=== PATIENT | female | born 1975 | race African-American/Black ===

== ENCOUNTER 2019-01-06 03:42 | Emergency (ER) | payer SELFPAY ==
[~2019-01-06] VITALS: Ht 170.2 cm; Wt 101.0 kg
[2019-01-06] MEDS ORDERED: LORAZEPAM 2MG/ML CPJ IM ONE (04:45)
[2019-01-06] MEDS ORDERED: CLONIDINE 0.1MG TABLET PO ONE (05:15)
[2019-01-06 06:25] VITALS: BP 180/108
== END 2019-01-06 06:35 | disposition home or self-care (01) ==
LOC: ER 04:40
DX: T74.21XA Adult sexual abuse, confirmed, initial encounter (principal); I16.0 Hypertensive urgency; R45.1 Restlessness and agitation; F14.10 Cocaine abuse, uncomplicated; F12.10 Cannabis abuse, uncomplicated; F17.200 Nicotine dependence, unspecified, uncomplicated
CPT/HCPCS: 96372; 99283; J2060; Z7610

== ENCOUNTER 2019-07-17 10:37 | Emergency (ER) | payer MEDICAID ==
[~2019-07-17] VITALS: Ht 167.6 cm; Wt 100.0 kg
[2019-07-17] MEDS ORDERED: ACETAMINOPHEN 325MG TABLET PO ONE (12:15)
[2019-07-17] MEDS ORDERED: METOCLOPRAMIDE HCL 10MG/2ML VIAL IV ONE (12:15)
[2019-07-17] MEDS ORDERED: MAGNESIUM 2 G PREMIX 50 ML IV ONE (12:45)
[2019-07-17 13:21] LABS: *AMPHETAMINES SCREEN URINE NEGATIVE (NEGATIVE); *BARBITURATES SCREEN URINE NEGATIVE (NEGATIVE); *BENZODIAZEPINES SCREEN URINE NEGATIVE (NEGATIVE)
[2019-07-17 13:22] LABS: METHADONE URINE SCREEN NEGATIVE (NEGATIVE); OPIATES URINE SCREEN NEGATIVE (NEGATIVE)
[2019-07-17 13:24] LABS: *COCAINE SCREEN URINE PRESUMTIVE POSITIVE (NEGATIVE); CANNABINOID URINE SCREEN PRESUMTIVE POSITIVE (NEGATIVE); PHENCYCLIDINE URINE SCREEN PRESUMTIVE POSITIVE (NEGATIVE)
[2019-07-17 13:44] LABS: BASOPHILS % 0.2 % (0.0-2.0); EOSINOPHILS % 0.5 % (0.0-5.0); HEMATOCRIT. 39.6 % (36.0-48.0); HEMOGLOBIN. 12.8 g/dL (12.0-16.0); MEAN CORPUSCULAR VOLUME 86.5 fL (81.0-99.0); MONOCYTES % 5.7 % (2.0-8.0); NEUTROPHILS % 74.6 % (40.0-76.0); PLATELET 270 x1000/uL (130-400); RED BLOOD CELL COUNT 4.58 mill/uL (4.2-5.4); RED CELL DISTRIBUTION WIDTH 13.7 % (11.6-14.6)
[2019-07-17 13:50] LABS: CHLORIDE 106 mEq/L (98-107)
[2019-07-17 13:53] LABS: ETHANOL BLOOD < 10 mg/dL
[2019-07-17 13:56] LABS: HCG SCREEN NEGATIVE
[2019-07-17 16:20] VITALS: BP 180/120
== END 2019-07-17 17:05 | disposition home or self-care (01) ==
LOC: ER 10:37
DX: S09.8XXA Other specified injuries of head, initial encounter (principal); R07.89 Other chest pain; Y04.2XXA Assault by strike against or bumped into by another person, initial encounter; Y93.89 Activity, other specified; Y92.89 Other specified places as the place of occurrence of the external cause; F16.129 Hallucinogen abuse with intoxication, unspecified; F14.129 Cocaine abuse with intoxication, unspecified
CPT/HCPCS: 36415; 70450; 71045; 80053; 80305; 80320; 84484; 84703; 85025; 93005; 96365; 96375; 99284; J2765; J3475; G0480

== ENCOUNTER 2021-07-17 12:38 | Inpatient (IN) | payer MEDICAID, OTHER ==
[~2021-07-17] VITALS: Ht 170.2 cm; Wt 101.2 kg
[2021-07-17 13:34] LABS: CLARITY URINE CLEAR (CLEAR); COLOR URINE YELLOW (YELLOW); KETONES URINE NEGATIVE (NEGATIVE); LEUKOCYTE ESTERASE URINE NEGATIVE (NEGATIVE); NITRITE URINE NEGATIVE (NEGATIVE); OCCULT BLOOD URINE NEGATIVE (NEGATIVE); PH URINE 6.5 (4.5-8.0); PROTEIN URINE NEGATIVE (NEGATIVE); SPECIFIC GRAVITY URINE 1.018 (1.005-1.030); UROBILINOGEN URINE 0.2 E.U./dL (0.2-1.0)
[2021-07-17 13:38] LABS: BASOPHILS % 0.7 % (0.0-2.0); EOSINOPHILS % 0.6 % (0.0-5.0); HEMATOCRIT. 41.1 % (36.0-48.0); HEMOGLOBIN. 13.2 g/dL (12.0-16.0); LYMPHOCYTES % 32.6 % (20.0-50.0); MEAN CORPUSCULAR HEMOGLOBIN 27.8 pg (28.0-32.0); MEAN CORPUSCULAR VOLUME 86.6 fL (81.0-99.0); MEAN PLATELET VOLUME 9.1 fl (7.4-10.4); MONOCYTES % 5.9 % (2.0-8.0); NEUTROPHILS % 60.2 % (40.0-76.0); PLATELET 275 x1000/uL (130-400); RED BLOOD CELL COUNT 4.74 mill/uL (4.2-5.4); RED CELL DISTRIBUTION WIDTH 13.6 % (11.6-14.6)
[2021-07-17 13:42] LABS: CHLORIDE 110 mEq/L (98-107)
[2021-07-17] MEDS ORDERED: ASPIRIN 81MG TABLET PO ONE (13:45)
[2021-07-17 13:47] LABS: ETHANOL BLOOD < 10 mg/dL
[2021-07-17 13:50] LABS: *AMPHETAMINES SCREEN URINE NEGATIVE (NEGATIVE); *BARBITURATES SCREEN URINE NEGATIVE (NEGATIVE); *BENZODIAZEPINES SCREEN URINE NEGATIVE (NEGATIVE); METHADONE URINE SCREEN NEGATIVE (NEGATIVE); OPIATES URINE SCREEN NEGATIVE (NEGATIVE)
[2021-07-17 14:06] LABS: HCG SCREEN NEGATIVE
[2021-07-17 14:11] LABS: *COCAINE SCREEN URINE PRESUMTIVE POSITIVE (NEGATIVE); CANNABINOID URINE SCREEN PRESUMTIVE POSITIVE (NEGATIVE); PHENCYCLIDINE URINE SCREEN PRESUMTIVE POSITIVE (NEGATIVE)
[2021-07-17] MEDS ORDERED: IOHEXOL-350 100 ML BOTTLE ONE (14:11)
[2021-07-17] MEDS ORDERED: IPRATROPIUM/ALBUTEROL 0.5-3(2.5)MG/3ML NEB HHN PRN (17:45)
[2021-07-17] MEDS ORDERED: ONDANSETRON HCL 4MG/2ML INJ IV PRN (17:45)
[2021-07-17] MEDS ORDERED: DIPHENHYDRAMINE 50MG/ML VIAL IV PRN (17:45)
[2021-07-17 21:50] VITALS: BP 153/94
[2021-07-17] MEDS ORDERED: LORAZEPAM 0.5MG TABLET PO PRN (22:45)
[2021-07-17] MEDS ORDERED: LORAZEPAM 2MG/ML CPJ IV PRN (22:45)
[2021-07-17] MEDS ORDERED: LISI20TA31 MT (23:31)
[2021-07-18] VITALS: BP 142/84
[2021-07-18 04:00] VITALS: BP 153/82
[2021-07-18] MEDS: ACETAMINOPHEN 325MG TABLET PO PRN ×2 (05:12→09:25)
[2021-07-18 07:57] LABS: CHLORIDE 111 mEq/L (98-107)
[2021-07-18 07:58] LABS: BASOPHILS % 0.4 % (0.0-2.0); EOSINOPHILS % 0.9 % (0.0-5.0); HEMATOCRIT. 38.3 % (36.0-48.0); HEMOGLOBIN. 12.6 g/dL (12.0-16.0); LYMPHOCYTES % 33.3 % (20.0-50.0); MEAN CORPUSCULAR HEMOGLOBIN 27.9 pg (28.0-32.0); MEAN CORPUSCULAR VOLUME 85.1 fL (81.0-99.0); MEAN PLATELET VOLUME 9.1 fl (7.4-10.4); NEUTROPHILS % 58.4 % (40.0-76.0); PLATELET 275 x1000/uL (130-400); RED CELL DISTRIBUTION WIDTH 13.5 % (11.6-14.6)
[2021-07-18 08:00] VITALS: BP 148/104
[2021-07-18] MEDS ORDERED: ASPIRIN 81MG EC TABLET PO SCH (09:00)
[2021-07-18] MEDS: CLONIDINE 0.1MG TABLET PO PRN (09:25)
[2021-07-18 12:00] VITALS: BP 159/85
[2021-07-18 16:00] VITALS: BP 150/89
[2021-07-18 16:58] LABS: T4 FREE 0.87 ng/dL (0.76-1.46)
[2021-07-18 17:22] LABS: FOLIC ACID (FOLATE) SERUM 11.1 ng/mL (>5.38)
[2021-07-18 20:00] VITALS: BP 142/85
[2021-07-18] MEDS: ATORVASTATIN CALCIUM 20MG TABLET PO SCH (20:23)
[2021-07-19 00:03] VITALS: BP 139/74
[2021-07-19 04:00] VITALS: BP 148/74
[2021-07-19 08:00] VITALS: BP 143/88
[2021-07-19] MEDS: CLOPIDOGREL 75MG TABLET PO SCH (08:33)
[2021-07-19 12:00] VITALS: BP 160/90
[2021-07-19 16:00] VITALS: BP 153/99
[2021-07-19] MEDS: CLONIDINE 0.1MG TABLET PO PRN (17:05)
[2021-07-19] MEDS: ACETAMINOPHEN 325MG TABLET PO PRN (17:09)
[2021-07-19] MEDS ORDERED: ATOR20TA PO (17:51)
[2021-07-19] MEDS ORDERED: LOSA25TA26 MT (17:51)
[2021-07-19] MEDS ORDERED: CLOP75TA15 PO (17:51)
[2021-07-19] MEDS: LOSARTAN POTASSIUM 25 MG TABLET PO SCH (18:39)
[2021-07-19 20:00] VITALS: BP 156/112
[2021-07-19] MEDS: ATORVASTATIN CALCIUM 20MG TABLET PO SCH (20:38)
[2021-07-20] VITALS: BP 166/95
[2021-07-20] MEDS: CLONIDINE 0.1MG TABLET PO PRN (00:19)
[2021-07-20 04:00] VITALS: BP 150/78
[2021-07-20 08:00] VITALS: BP 148/86
[2021-07-20] MEDS: CLOPIDOGREL 75MG TABLET PO SCH (09:06)
[2021-07-20] MEDS: LOSARTAN POTASSIUM 25 MG TABLET PO SCH (09:06)
[2021-07-20 10:06] VITALS: BP 148/86
[2021-07-20 11:50] VITALS: BP 144/91
== END 2021-07-20 12:24 | disposition home or self-care (01) | DRG 45 ==
LOC: ER 12:38 → EDBEDREQ 13:47 → EDBEDREQSVC 13:47 → EDBEDREQTM 13:47 → 6WST 16:45 → EDBEDREQTM 16:52 → EDBEDREQ 16:52 → ENRESERV 19:38
PROVIDERS: ADMIT Internal Medicine; ATTEND Internal Medicine
DX: I63.81 Other cerebral infarction due to occlusion or stenosis of small artery (principal); G81.94 Hemiplegia, unspecified affecting left nondominant side; F14.10 Cocaine abuse, uncomplicated; I10 Essential (primary) hypertension; F16.10 Hallucinogen abuse, uncomplicated; F12.10 Cannabis abuse, uncomplicated; F17.200 Nicotine dependence, unspecified, uncomplicated; R20.2 Paresthesia of skin; D49.89 Neoplasm of unspecified behavior of other specified sites; R26.89 Other abnormalities of gait and mobility
CPT/HCPCS: 36415; 70486; 70496; 70498; 70551; 71045; 80053; 80061; 80305; 80320; 81003; 82607; 82746; 83036; 84439; 84443; 84481; 84484; 84703; 85025; 93005; 93306; 93880; 93970; 97162; 97166; 99291; C1893; Q9967; G0480

== ENCOUNTER 2021-07-30 07:00 | Inpatient (IN) | payer OTHER ==
[~2021-07-30] VITALS: Ht 170.2 cm; Wt 105.9 kg
[~2021-07-30 07:00] MED LIST: ATOR20TA PO; CLOP75TA15 PO; LOSA25TA26 MT
[2021-07-30 08:38] LABS: BASOPHILS % 0.8 % (0.0-2.0); HEMATOCRIT. 38.7 % (36.0-48.0); HEMOGLOBIN. 12.5 g/dL (12.0-16.0); MEAN CORPUSCULAR VOLUME 86.5 fL (81.0-99.0); MEAN PLATELET VOLUME 8.7 fl (7.4-10.4); NEUTROPHILS % 61.2 % (40.0-76.0); PLATELET 288 x1000/uL (130-400); RED BLOOD CELL COUNT 4.48 mill/uL (4.2-5.4); RED CELL DISTRIBUTION WIDTH 13.6 % (11.6-14.6)
[2021-07-30 08:44] LABS: CHLORIDE 113 mEq/L (98-107)
[2021-07-30] MEDS ORDERED: MORPHINE SULFATE 4 MG/ML CPJ (NOT FOR IM USE) IV ONE (08:45)
[2021-07-30] MEDS ORDERED: HYDRALAZINE 20MG/ML VIAL IV ONE (09:45)
[2021-07-30] MEDS ORDERED: IPRATROPIUM/ALBUTEROL 0.5-3(2.5)MG/3ML NEB HHN PRN (11:45)
[2021-07-30] MEDS ORDERED: NALOXONE HCL 0.4MG/ML VIAL IV PRN (11:45)
[2021-07-30] MEDS ORDERED: MORPHINE SULFATE 2 MG/ML CPJ (NOT FOR IM USE) IV PRN (11:45)
[2021-07-30] MEDS ORDERED: DIPHENHYDRAMINE 50MG/ML VIAL IV PRN (11:45)
[2021-07-30] MEDS ORDERED: ONDANSETRON HCL 4MG/2ML INJ IV PRN (11:45)
[2021-07-30] MEDS ORDERED: CLONIDINE 0.1MG TABLET PO PRN (11:45)
[2021-07-30] MEDS ORDERED: ACETAMINOPHEN 325MG TABLET PO PRN (11:45)
[2021-07-30] MEDS: LOSARTAN POTASSIUM 25 MG TABLET PO SCH (12:28)
[2021-07-30] MEDS: CLOPIDOGREL 75MG TABLET PO SCH (12:28)
[2021-07-30] MEDS ORDERED: HYDRALAZINE 20MG/ML VIAL IV NR (13:45)
[2021-07-30 15:29] LABS: *BARBITURATES SCREEN URINE NEGATIVE (NEGATIVE); *BENZODIAZEPINES SCREEN URINE NEGATIVE (NEGATIVE); CANNABINOID URINE SCREEN NEGATIVE (NEGATIVE); METHADONE URINE SCREEN NEGATIVE (NEGATIVE); PHENCYCLIDINE URINE SCREEN NEGATIVE (NEGATIVE)
[2021-07-30 15:30] LABS: *AMPHETAMINES SCREEN URINE NEGATIVE (NEGATIVE)
[2021-07-30 15:35] LABS: *COCAINE SCREEN URINE PRESUMTIVE POSITIVE (NEGATIVE); OPIATES URINE SCREEN PRESUMTIVE POSITIVE (NEGATIVE)
[2021-07-30 16:00] VITALS: BP 149/91
[2021-07-30] MEDS: CLONIDINE 0.1MG TABLET PO SCH (19:07)
[2021-07-30 20:00] VITALS: BP 161/90
[2021-07-30] MEDS: AMLODIPINE 2.5MG TABLET PO SCH (20:41)
[2021-07-30] MEDS ORDERED: ATORVASTATIN CALCIUM 20MG TABLET PO SCH (21:00)
[2021-07-31] VITALS: BP 133/65
[2021-07-31] MEDS: CLONIDINE 0.1MG TABLET PO SCH ×2 (02:00→12:47)
[2021-07-31 04:00] VITALS: BP 124/81
[2021-07-31 06:59] LABS: CHLORIDE 110 mEq/L (98-107)
[2021-07-31 07:12] LABS: BASOPHILS % 0.2 % (0.0-2.0); HEMATOCRIT. 38.1 % (36.0-48.0); HEMOGLOBIN. 12.7 g/dL (12.0-16.0); LYMPHOCYTES % 32.7 % (20.0-50.0); MEAN CORPUSCULAR HEMOGLOBIN 28.6 pg (28.0-32.0); MEAN CORPUSCULAR VOLUME 85.4 fL (81.0-99.0); MEAN PLATELET VOLUME 9.1 fl (7.4-10.4); MONOCYTES % 7.5 % (2.0-8.0); NEUTROPHILS % 58.6 % (40.0-76.0); PLATELET 278 x1000/uL (130-400); RED BLOOD CELL COUNT 4.46 mill/uL (4.2-5.4); RED CELL DISTRIBUTION WIDTH 13.7 % (11.6-14.6)
[2021-07-31 08:00] VITALS: BP 137/94
[2021-07-31] MEDS ORDERED: ASPIRIN 81MG EC TABLET PO SCH (08:00)
[2021-07-31] MEDS: AMLODIPINE 2.5MG TABLET PO SCH (10:18)
[2021-07-31] MEDS: LOSARTAN POTASSIUM 25 MG TABLET PO SCH (10:18)
[2021-07-31] MEDS: CLOPIDOGREL 75MG TABLET PO SCH (10:18)
[2021-07-31 12:00] VITALS: BP 160/103
[2021-07-31] MEDS ORDERED: AMLO2.5T45 PO (12:05)
[2021-07-31] MEDS ORDERED: ASPI-1406 PO (12:05)
[2021-07-31 15:00] VITALS: BP 140/85
== END 2021-07-31 15:45 | disposition home or self-care (01) | DRG 203 ==
LOC: ER 07:00 → EDBEDREQTM 09:02 → 7EST 10:21 → EDBEDREQTM 10:45 → EDBEDREQ 10:45 → ENRESERV 14:57
PROVIDERS: ADMIT Internal Medicine; ATTEND Internal Medicine
DX: R07.9 Chest pain, unspecified (principal); I50.30 Unspecified diastolic (congestive) heart failure; I11.0 Hypertensive heart disease with heart failure; E78.5 Hyperlipidemia, unspecified; F14.90 Cocaine use, unspecified, uncomplicated; F17.210 Nicotine dependence, cigarettes, uncomplicated; R26.9 Unspecified abnormalities of gait and mobility; J44.9 Chronic obstructive pulmonary disease, unspecified; Z79.02 Long term (current) use of antithrombotics/antiplatelets; Z79.82 Long term (current) use of aspirin; Z71.6 Tobacco abuse counseling; I69.334 Monoplegia of upper limb following cerebral infarction affecting left non-dominant side
CPT/HCPCS: 36415; 71045; 80053; 80305; 83880; 84443; 84484; 85025; 93005; 93970; 99285; J0360; J2270

== ENCOUNTER 2021-08-11 16:16 | Inpatient (IN) | payer OTHER ==
[~2021-08-11] VITALS: Ht 177.8 cm; Wt 104.4 kg
[~2021-08-11 16:16] MED LIST changes: +AMLO2.5T45 PO; +ASPI-1406 PO
[2021-08-11] MEDS ORDERED: IOHEXOL-350 100 ML BOTTLE ONE (16:50)
[2021-08-11 18:26] LABS: CHLORIDE 111 mEq/L (98-107)
[2021-08-11 18:30] LABS: ETHANOL BLOOD < 10 mg/dL
[2021-08-11 18:32] LABS: BASOPHILS % 0.3 % (0.0-2.0); EOSINOPHILS % 1.1 % (0.0-5.0); HEMATOCRIT. 37.9 % (36.0-48.0); HEMOGLOBIN. 11.8 g/dL (12.0-16.0); LYMPHOCYTES % 30.2 % (20.0-50.0); MEAN CORPUSCULAR VOLUME 86.4 fL (81.0-99.0); MEAN PLATELET VOLUME 8.7 fl (7.4-10.4); MONOCYTES % 8.6 % (2.0-8.0); NEUTROPHILS % 59.8 % (40.0-76.0); PLATELET 280 x1000/uL (130-400); RED BLOOD CELL COUNT 4.39 mill/uL (4.2-5.4); RED CELL DISTRIBUTION WIDTH 13.6 % (11.6-14.6)
[2021-08-11 20:29] LABS: CLARITY URINE CLEAR (CLEAR); COLOR URINE YELLOW (YELLOW); KETONES URINE NEGATIVE (NEGATIVE); LEUKOCYTE ESTERASE URINE NEGATIVE (NEGATIVE); NITRITE URINE NEGATIVE (NEGATIVE); OCCULT BLOOD URINE NEGATIVE (NEGATIVE); PH URINE 7.5 (4.5-8.0); PROTEIN URINE NEGATIVE (NEGATIVE); SPECIFIC GRAVITY URINE 1.066 (1.005-1.030)
[2021-08-11 20:49] LABS: *AMPHETAMINES SCREEN URINE NEGATIVE (NEGATIVE); *BARBITURATES SCREEN URINE NEGATIVE (NEGATIVE)
[2021-08-11 20:50] LABS: *BENZODIAZEPINES SCREEN URINE NEGATIVE (NEGATIVE); METHADONE URINE SCREEN NEGATIVE (NEGATIVE); OPIATES URINE SCREEN NEGATIVE (NEGATIVE)
[2021-08-11 20:53] LABS: *COCAINE SCREEN URINE PRESUMTIVE POSITIVE (NEGATIVE); CANNABINOID URINE SCREEN PRESUMTIVE POSITIVE (NEGATIVE); PHENCYCLIDINE URINE SCREEN PRESUMTIVE POSITIVE (NEGATIVE)
[2021-08-12 07:48] VITALS: BP 175/117
[2021-08-12] MEDS ORDERED: HYDRALAZINE 20MG/ML VIAL IV NR (08:45)
[2021-08-12] MEDS ORDERED: ONDANSETRON HCL 4MG/2ML INJ IV PRN (09:15)
[2021-08-12] MEDS ORDERED: POTASSIUM CHLORIDE 20MEQ TABLET SR PO NR (09:15)
[2021-08-12] MEDS ORDERED: ACETAMINOPHEN 325MG TABLET PO PRN (09:15)
[2021-08-12] MEDS ORDERED: ASPIRIN 81MG TABLET PO SCH (09:15)
[2021-08-12] MEDS ORDERED: AMLODIPINE 10MG TABLET PO SCH (09:15)
[2021-08-12] MEDS ORDERED: CLOPIDOGREL 75MG TABLET PO SCH (09:15)
[2021-08-12] MEDS ORDERED: ENOXAPARIN 30MG/0.3ML SYR SUBCUT SCH (09:30)
== END 2021-08-12 09:27 | disposition left against medical advice (07) | DRG 45 ==
LOC: ER 16:16 → MICUSO 19:00 → EDBEDREQSVC 19:07 → EDBEDREQ 19:07 → EDBEDREQTM 19:07
PROVIDERS: ADMIT Internal Medicine; ATTEND Internal Medicine
DX: I63.9 Cerebral infarction, unspecified (principal); E44.0 Moderate protein-calorie malnutrition; E87.8 Other disorders of electrolyte and fluid balance, not elsewhere classified; E66.9 Obesity, unspecified; F19.10 Other psychoactive substance abuse, uncomplicated; I10 Essential (primary) hypertension; R29.810 Facial weakness; Z53.29 Procedure and treatment not carried out because of patient's decision for other reasons; Z20.822 Contact with and (suspected) exposure to COVID-19; Z86.73 Personal history of transient ischemic attack (TIA), and cerebral infarction without residual deficits; I16.1 Hypertensive emergency; Z68.33 Body mass index [BMI] 33.0-33.9, adult; E87.6 Hypokalemia; Z71.51 Drug abuse counseling and surveillance of drug abuser
CPT/HCPCS: 36415; 70496; 70498; 71045; 80053; 80305; 80320; 81003; 84484; 85025; 87426; 93005; 99291; J0360; Q9967; G0480

== ENCOUNTER 2021-12-24 22:21 | Emergency (ER) | payer OTHER ==
[~2021-12-24] VITALS: Ht 170.2 cm; Wt 93.1 kg
[~2021-12-24 22:21] MED LIST changes: +AMLO10TA80 MT; +AMLO10TA80 PO; -AMLO2.5T45 PO; +ASPI-1406 MT; -CLOP75TA15 PO; +HYDR100T26 MT; +LIP40 MT; +LIP40 PO; -LOSA25TA26 MT
[2021-12-24 23:06] VITALS: BP 185/124
[2021-12-24] MEDS ORDERED: AMLODIPINE 5MG TABLET PO ONE (23:30)
[2021-12-24] MEDS ORDERED: HYDROCODONE/ACETAMINOPHEN 5/325MG TABLET PO ONE (23:30)
== END 2021-12-25 03:25 | disposition left against medical advice (07) ==
LOC: ER 22:21
DX: I10 Essential (primary) hypertension (principal); H92.02 Otalgia, left ear; I69.954 Hemiplegia and hemiparesis following unspecified cerebrovascular disease affecting left non-dominant side; Z91.14 Patient's other noncompliance with medication regimen; F14.90 Cocaine use, unspecified, uncomplicated; F12.90 Cannabis use, unspecified, uncomplicated; F16.90 Hallucinogen use, unspecified, uncomplicated
CPT/HCPCS: 99281

== ENCOUNTER 2022-01-15 22:48 | Inpatient (IN) | payer OTHER ==
[~2022-01-15] VITALS: Ht 170.2 cm; Wt 101.2 kg
[2022-01-16] MEDS ORDERED: MORPHINE SULFATE 4 MG/ML CPJ (NOT FOR IM USE) IV STA (00:18)
[2022-01-16] MEDS ORDERED: ONDANSETRON HCL 4MG/2ML INJ IV STA (00:18)
[2022-01-16] MEDS ORDERED: SODIUM CHLORIDE 0.9% 1,000 ML IV ONE (00:30)
[2022-01-16] MEDS ORDERED: ONDANSETRON HCL 4MG/2ML INJ IV NR (00:45)
[2022-01-16] MEDS ORDERED: MORPHINE SULFATE 4 MG/ML CPJ (NOT FOR IM USE) IV NR (00:45)
[2022-01-16] MEDS ORDERED: HYDRALAZINE 20MG/ML VIAL IV ONE (01:15)
[2022-01-16 01:17] LABS: BASOPHILS % 0.1 % (0.0-2.0); EOSINOPHILS % 0.1 % (0.0-5.0); HEMATOCRIT. 38.5 % (36.0-48.0); HEMOGLOBIN. 12.3 g/dL (12.0-16.0); MEAN CORPUSCULAR HEMOGLOBIN 27.6 pg (28.0-32.0); MEAN CORPUSCULAR VOLUME 86.2 fL (81.0-99.0); MEAN PLATELET VOLUME 8.2 fl (7.4-10.4); MONOCYTES % 4.4 % (2.0-8.0); NEUTROPHILS % 84.4 % (40.0-76.0); PLATELET 309 x1000/uL (130-400); RED BLOOD CELL COUNT 4.46 mill/uL (4.2-5.4); RED CELL DISTRIBUTION WIDTH 13.8 % (11.6-14.6)
[2022-01-16 01:26] LABS: CHLORIDE 110 mEq/L (98-107)
[2022-01-16 01:33] LABS: PARTIAL THROMBOPLASTIN TIME 25.6 sec (23.4-31.0); PROTHROMBIN TIME 10.4 sec (9.6-11.0)
[2022-01-16 01:36] LABS: ETHANOL BLOOD < 10 mg/dL
[2022-01-16 01:39] LABS: *AMPHETAMINES SCREEN URINE NEGATIVE (NEGATIVE); *BARBITURATES SCREEN URINE NEGATIVE (NEGATIVE); *BENZODIAZEPINES SCREEN URINE NEGATIVE (NEGATIVE); METHADONE URINE SCREEN NEGATIVE (NEGATIVE); OPIATES URINE SCREEN NEGATIVE (NEGATIVE)
[2022-01-16] MEDS ORDERED: ASPIRIN 325MG EC TABLET PO ONE (01:45)
[2022-01-16 01:49] LABS: *COCAINE SCREEN URINE PRESUMTIVE POSITIVE (NEGATIVE); CANNABINOID URINE SCREEN PRESUMTIVE POSITIVE (NEGATIVE); PHENCYCLIDINE URINE SCREEN PRESUMTIVE POSITIVE (NEGATIVE)
[2022-01-16] MEDS ORDERED: CLONIDINE 0.2MG TABLET PO ONE (03:15)
[2022-01-16] MEDS ORDERED: MORPHINE SULFATE 4 MG/ML CPJ (NOT FOR IM USE) IV ONE (03:30)
[2022-01-16 03:53] LABS: HCG SCREEN NEGATIVE
[2022-01-16 09:00] VITALS: BP 153/99
[2022-01-16] MEDS ORDERED: ACETAMINOPHEN 325MG TABLET PO PRN ×2 (10:15)
[2022-01-16] MEDS ORDERED: IPRATROPIUM/ALBUTEROL 0.5-3(2.5)MG/3ML NEB HHN PRN (10:15)
[2022-01-16] MEDS ORDERED: DOCUSATE SODIUM 100MG CAPSULE PO PRN (10:15)
[2022-01-16] MEDS ORDERED: LORAZEPAM 0.5MG TABLET PO PRN (10:15)
[2022-01-16] MEDS ORDERED: ONDANSETRON HCL 4MG/2ML INJ IV PRN (10:15)
[2022-01-16] MEDS: ATORVASTATIN CALCIUM 40MG TABLET PO SCH (10:38)
[2022-01-16] MEDS: HYDROCODONE/ACETAMINOPHEN 5/325MG TABLET PO PRN ×2 (10:42→15:05)
[2022-01-16] MEDS ORDERED: NALOXONE HCL 0.4MG/ML VIAL IV PRN (10:45)
[2022-01-16 11:17] VITALS: BP 153/99
[2022-01-16] MEDS: CLONIDINE 0.1MG TABLET PO PRN ×2 (15:05→21:19)
[2022-01-16] MEDS: LIDOCAINE 5% PATCH TOP SCH (15:06)
[2022-01-16 16:00] VITALS: BP 154/97
[2022-01-16 20:00] VITALS: BP 167/76
[2022-01-17] VITALS: BP 146/75
[2022-01-17 04:00] VITALS: BP 147/70
[2022-01-17 08:00] VITALS: BP 191/132
[2022-01-17 08:00] LABS: BASOPHILS % 0.1 % (0.0-2.0); EOSINOPHILS % 0.1 % (0.0-5.0); HEMATOCRIT. 37.8 % (36.0-48.0); HEMOGLOBIN. 12.3 g/dL (12.0-16.0); LYMPHOCYTES % 17.1 % (20.0-50.0); MEAN CORPUSCULAR HEMOGLOBIN 27.9 pg (28.0-32.0); MEAN CORPUSCULAR VOLUME 85.6 fL (81.0-99.0); MEAN PLATELET VOLUME 8.7 fl (7.4-10.4); MONOCYTES % 5.1 % (2.0-8.0); NEUTROPHILS % 77.6 % (40.0-76.0); PLATELET 309 x1000/uL (130-400); RED BLOOD CELL COUNT 4.41 mill/uL (4.2-5.4); RED CELL DISTRIBUTION WIDTH 13.9 % (11.6-14.6)
[2022-01-17 08:07] LABS: CHLORIDE 108 mEq/L (98-107)
[2022-01-17] MEDS: ASPIRIN 81MG TABLET PO SCH (09:33)
[2022-01-17] MEDS: CLONIDINE 0.1MG TABLET PO PRN ×2 (09:33→17:48)
[2022-01-17] MEDS: ATORVASTATIN CALCIUM 40MG TABLET PO SCH (09:33)
[2022-01-17] MEDS: LIDOCAINE 5% PATCH TOP SCH (09:34)
[2022-01-17] MEDS: HYDROCODONE/ACETAMINOPHEN 5/325MG TABLET PO PRN ×2 (09:34→22:55)
[2022-01-17] MEDS: AMLODIPINE 10MG TABLET PO SCH (09:54)
[2022-01-17] MEDS ORDERED: LABETALOL 5MG/ML SYR 20 MG/4 ML SYRINGE IV NR (11:00)
[2022-01-17 12:00] VITALS: BP 158/107
[2022-01-17] MEDS: HYDRALAZINE HCL 100MG TABLET PO SCH ×3 (13:30→22:12)
[2022-01-17] MEDS ORDERED: GUAIFENESIN 200MG/10ML SUGAR FREE UDC PO PRN (14:45)
[2022-01-17 16:00] VITALS: BP 171/110
[2022-01-17 20:00] VITALS: BP 159/103
[2022-01-18] VITALS: BP 160/99
[2022-01-18 04:00] VITALS: BP 145/95
[2022-01-18] MEDS: HYDRALAZINE HCL 100MG TABLET PO SCH ×3 (06:08→21:04)
[2022-01-18 08:00] VITALS: BP 141/95
[2022-01-18] MEDS: ATORVASTATIN CALCIUM 40MG TABLET PO SCH (09:01)
[2022-01-18] MEDS: AMLODIPINE 10MG TABLET PO SCH (09:02)
[2022-01-18] MEDS: ASPIRIN 81MG TABLET PO SCH (09:02)
[2022-01-18] MEDS: LIDOCAINE 5% PATCH TOP SCH (09:02)
[2022-01-18] MEDS: HYDROCODONE/ACETAMINOPHEN 5/325MG TABLET PO PRN ×3 (09:09→18:41)
[2022-01-18 10:52] LABS: BASOPHILS % 0.1 % (0.0-2.0); EOSINOPHILS % 0.1 % (0.0-5.0); HEMATOCRIT. 39.3 % (36.0-48.0); HEMOGLOBIN. 12.7 g/dL (12.0-16.0); LYMPHOCYTES % 14.8 % (20.0-50.0); MEAN CORPUSCULAR HEMOGLOBIN 27.9 pg (28.0-32.0); MEAN CORPUSCULAR VOLUME 86.1 fL (81.0-99.0); MONOCYTES % 4.9 % (2.0-8.0); NEUTROPHILS % 80.1 % (40.0-76.0); PLATELET 340 x1000/uL (130-400); RED BLOOD CELL COUNT 4.56 mill/uL (4.2-5.4); RED CELL DISTRIBUTION WIDTH 14.1 % (11.6-14.6)
[2022-01-18 11:01] LABS: CHLORIDE 107 mEq/L (98-107)
[2022-01-18 12:00] VITALS: BP 136/98
[2022-01-18 16:00] VITALS: BP 156/99
[2022-01-18 20:00] VITALS: BP 158/99
[2022-01-19] VITALS (7 sets, daily range): BP systolic 140–187; BP diastolic 70–126
[2022-01-19] MEDS: HYDROCODONE/ACETAMINOPHEN 5/325MG TABLET PO PRN (03:45)
[2022-01-19] MEDS: HYDRALAZINE HCL 100MG TABLET PO SCH (05:16)
[2022-01-19] MEDS: LIDOCAINE 5% PATCH TOP SCH (09:43)
[2022-01-19] MEDS: ASPIRIN 81MG TABLET PO SCH (09:44)
[2022-01-19] MEDS: ATORVASTATIN CALCIUM 40MG TABLET PO SCH (09:44)
[2022-01-19] MEDS: AMLODIPINE 10MG TABLET PO SCH (09:45)
[2022-01-19] MEDS ORDERED: ACET-3163 MT (12:00)
[2022-01-19] MEDS ORDERED: LIDO700A30 TOP (12:00)
== END 2022-01-19 13:57 | disposition home or self-care (01) | DRG 135 ==
LOC: ER 22:48 → 7WST 01-16 01:54 → ENRESERV 01-16 07:33
PROVIDERS: ADMIT Internal Medicine; ATTEND Internal Medicine
DX: S22.41XA Multiple fractures of ribs, right side, initial encounter for closed fracture (principal); G92.9 Unspecified toxic encephalopathy; I69.354 Hemiplegia and hemiparesis following cerebral infarction affecting left non-dominant side; I16.1 Hypertensive emergency; I11.0 Hypertensive heart disease with heart failure; I50.32 Chronic diastolic (congestive) heart failure; E66.9 Obesity, unspecified; R29.810 Facial weakness; R59.0 Localized enlarged lymph nodes; E87.6 Hypokalemia; F19.10 Other psychoactive substance abuse, uncomplicated; R47.81 Slurred speech; F17.210 Nicotine dependence, cigarettes, uncomplicated; R29.818 Other symptoms and signs involving the nervous system; V43.62XA Car passenger injured in collision with other type car in traffic accident, initial encounter; Y93.89 Activity, other specified; Y99.8 Other external cause status; Y92.410 Unspecified street and highway as the place of occurrence of the external cause; Z68.34 Body mass index [BMI] 34.0-34.9, adult; Z71.3 Dietary counseling and surveillance; Z71.51 Drug abuse counseling and surveillance of drug abuser
CPT/HCPCS: 36415; 70496; 70498; 70551; 71045; 71250; 72192; 73030; 80048; 80053; 80305; 80320; 83880; 84484; 84703; 85025; 86850; 86900; 93005; 97166; 97535; 99291; J0360; J2270; J2405; J3490; J7030; G0480

== ENCOUNTER 2022-04-01 02:30 | Emergency (ER) | payer MEDICAID, OTHER ==
[~2022-04-01] VITALS: Ht 167.6 cm; Wt 94.0 kg
[~2022-04-01 02:30] MED LIST changes: +ACET-3163 MT; -AMLO10TA80 PO; -ASPI-1406 MT; +LIDO700A30 TOP; -LIP40 MT; -LIP40 PO
[2022-04-01 02:38] VITALS: BP 151/113
[2022-04-01] MEDS ORDERED: TETANUS, DIPHTHERIA, PERTUSSIS VAC/PF 0.5ML (>10YR OLD) IM ONE (03:15)
[2022-04-01] MEDS ORDERED: BACITRACIN ZINC OINT UDPKT TOP ONE (03:15)
[2022-04-01] MEDS ORDERED: LIDOCAINE HCL/EPINEPHRINE 1%-EPI 1:100,000 20 ML VIAL INFIL ONE (03:15)
[2022-04-01] MEDS ORDERED: LIDOCAINE HCL/EPINEPHRINE 1%-EPI 1:100,000 10 ML VIAL INFIL NR (03:30)
[2022-04-01] MEDS ORDERED: CEPHALEXIN 250MG CAPSULE PO ONE (05:00)
[2022-04-01] MEDS ORDERED: HYDROCODONE/ACETAMINOPHEN 5/325MG TABLET PO ONE (05:15)
[2022-04-01] MEDS ORDERED: CEPH500C2 MT ×3 (05:40→05:53)
[2022-04-01] MEDS ORDERED: IBUP-2029 MT (05:53)
== END 2022-04-01 06:07 | disposition home or self-care (01) ==
LOC: ER 02:48
DX: L03.115 Cellulitis of right lower limb (principal); S90.511A Abrasion, right ankle, initial encounter; W45.8XXA Other foreign body or object entering through skin, initial encounter; Y93.89 Activity, other specified; Y92.89 Other specified places as the place of occurrence of the external cause; I10 Essential (primary) hypertension; Z86.73 Personal history of transient ischemic attack (TIA), and cerebral infarction without residual deficits
CPT/HCPCS: 73610; 90471; 90715; 99283; J3490; Z7610

== ENCOUNTER 2022-06-23 10:58 | Emergency (ER) | payer OTHER ==
[~2022-06-23] VITALS: Ht 167.6 cm; Wt 109.0 kg
[~2022-06-23 10:58] MED LIST changes: +CEPH500C2 MT; +IBUP-2029 MT; +LEVO-65 MT; +SULF1TAB48 MT
[2022-06-23 11:31] VITALS: BP 173/112
[2022-06-23] MEDS ORDERED: AMLO10TA80 MT (11:47)
== END 2022-06-23 12:14 | disposition home or self-care (01) ==
LOC: ER 10:58
DX: S61.230A Puncture wound without foreign body of right index finger without damage to nail, initial encounter (principal); S61.238A Puncture wound without foreign body of other finger without damage to nail, initial encounter; I10 Essential (primary) hypertension; F12.10 Cannabis abuse, uncomplicated; F10.129 Alcohol abuse with intoxication, unspecified; Y90.9 Presence of alcohol in blood, level not specified; X58.XXXA Exposure to other specified factors, initial encounter; Y93.89 Activity, other specified; Y92.89 Other specified places as the place of occurrence of the external cause; Y99.8 Other external cause status
CPT/HCPCS: 99283

== ENCOUNTER 2024-11-22 05:44 | Emergency (ER) | payer MEDICAID, OTHER ==
[~2024-11-22] VITALS: Ht 170.2 cm; Wt 82.0 kg
[~2024-11-22 05:44] MED LIST changes: +HYDR100T11 MT; -HYDR100T26 MT; +NITR100C MT
[2024-11-22 05:46] VITALS: O2SAT 99
[2024-11-22 06:48] LABS: BASOPHILS % 0.7 % (0.0-2.0); DIFFERENTIAL COMMENT 0; EOSINOPHILS % 1.5 % (0.0-5.0); HEMATOCRIT. 40.8 % (36.0-48.0); HEMOGLOBIN. 12.8 g/dL (12.0-16.0); LYMPHOCYTES % 33.9 % (20.0-50.0); MEAN CORPUSCULAR HEMOGLOBIN 26.6 pg (28.0-32.0); MEAN CORPUSCULAR HGB CONC 31.4 g/dL (31.0-37.0); MEAN CORPUSCULAR VOLUME 84.7 fL (81.0-99.0); MEAN PLATELET VOLUME 8.7 fl (7.4-10.4); MONOCYTES % 9.4 % (2.0-8.0); NEUTROPHILS % 54.5 % (40.0-76.0); PLATELET 276 x1000/uL (130-400); RED BLOOD CELL COUNT 4.82 mill/uL (4.2-5.4); RED CELL DISTRIBUTION WIDTH 14.7 % (11.6-14.6); WHITE BLOOD COUNT 4.7 x1000/uL (4.5-11.0)
[2024-11-22 06:57] LABS: CHLORIDE 110 mEq/L (98-107); POTASSIUM 3.6 mEq/L (3.5-5.1); SODIUM 144 mEq/L (136-145)
[2024-11-22 06:58] LABS: CALCIUM 9.2 mg/dL (8.7-10.4); CARBON DIOXIDE 29 mEq/L (21-32)
[2024-11-22 07:03] LABS: CREATININE 0.9 mg/dL (0.6-1.0); ETHANOL BLOOD < 10 mg/dL (<10); GLUCOSE 93 mg/dL (70-105); UREA NITROGEN BLOOD 17 mg/dL (9-23)
[2024-11-22 08:00] LABS: CLARITY URINE CLEAR (CLEAR); COLOR URINE YELLOW (YELLOW); GLUCOSE URINE NEGATIVE (NEGATIVE); KETONES URINE NEGATIVE (NEGATIVE); LEUKOCYTE ESTERASE URINE NEGATIVE (NEGATIVE); NITRITE URINE NEGATIVE (NEGATIVE); OCCULT BLOOD URINE NEGATIVE (NEGATIVE); PROTEIN URINE NEGATIVE (NEGATIVE); SPECIFIC GRAVITY URINE 1.023 (1.005-1.030)
[2024-11-22 08:32] VITALS: BP 173/100; PULSE 57; RESP 20; TEMP 36.7; O2SAT 100
[2024-11-22 08:34] LABS: *AMPHETAMINES SCREEN URINE NEGATIVE (NEGATIVE); *BARBITURATES SCREEN URINE NEGATIVE (NEGATIVE); *BENZODIAZEPINES SCREEN URINE NEGATIVE (NEGATIVE); *COCAINE SCREEN URINE PRESUMPTIVE POSITIVE (NEGATIVE); METHADONE URINE SCREEN NEGATIVE (NEGATIVE); OPIATES URINE SCREEN NEGATIVE (NEGATIVE)
[2024-11-22 08:35] LABS: CANNABINOID URINE SCREEN PRESUMPTIVE POSITIVE (NEGATIVE); ECSTASY MDMA SCREEN URINE NEGATIVE (NEGATIVE); PHENCYCLIDINE URINE SCREEN PRESUMTIVE POSITIVE (NEGATIVE)
== END 2024-11-22 08:50 | disposition home or self-care (01) ==
LOC: ER 05:44
DX: R20.2 Paresthesia of skin (principal); I10 Essential (primary) hypertension; Z86.73 Personal history of transient ischemic attack (TIA), and cerebral infarction without residual deficits; Z79.899 Other long term (current) drug therapy; Z88.8 Allergy status to other drugs, medicaments and biological substances
CPT/HCPCS: 36415; 80048; 80305; 80320; 81003; 82962; 85025; 99284; G0480